=== PATIENT | male | born 1995 | race Caucasian/White ===

== ENCOUNTER → 2019-04-27 | Outpatient (CLI) | payer OTHER ==
[2016-04-23 19:50] VITALS: BP 154/84
--- NOTE | 2019-04-27 15:13 | RAD ---
Examination: TESTICULAR/SCROTUM History: Right testicular pain Comparison/Correlation: None Findings: Scrotal ultrasound was performed. Right testicle measures 5.3 cm x 2.5 cm 2.7 cm. Left testicle measures 4.7 cm x 2.3 cm x 3.2 cm. Normal testicular echotexture noted. Normal flow evident. No suspicious epididymal lesions. No significant fluid within the scrotal sac. No mass identified. No varicocele filling. Impression: No torsion or other suspicious finding. Electronically signed by: Stephan Rothman MD (04/27/2019 3:10 PM) [facility]
== END | disposition home or self-care (01) ==
LOC: US 14:27
PROVIDERS: ATTEND Physician Assistant
DX: N50.811 Right testicular pain (principal)
CPT/HCPCS: 76870